=== PATIENT | male | born 1980 | race Two or more races ===

== ENCOUNTER → 2017-02-03 | Emergency (ER) | payer OTHER ==
[~2017-02-03] MED LIST: ASPIRIN 81 MG CHEWABLE TABLETS ONE; ASPIRIN 81 MG CHEWABLE TABLETS PO ONE; SODIUM CHLORIDE 0.9% 500 ML INFUS.BAG IV ONE
[2017-02-03 13:41] VITALS: BMI 39.1
--- NOTE | 2017-02-03 14:05 | PDOC ---
History of Present Illness - General History Source: Patient, Family Exam Limitations: No Limitations <Rubin Castellanos - Last Filed: 02/03/17 16:28> <Erin Browne - Last Filed: 02/03/17 22:09> <Eliel Marcano - Last Filed: 02/04/17 09:38> - General Chief Complaint: Chest Pain Stated Complaint: CHEST PAIN Time Seen by Provider: 02/03/17 13:52 - History of Present Illness Initial Comments: 02/03/17 15:44 The patient is a 36 year old male, with a significant past medical history of hypertension and hyperlipidemia, who presents to the emergency department complaining of chest pain that began yesterday. 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 During the shift he felt his pain was worse when walking around. He continued to work his shift, but towards the end someone had to takeover, because of his pain. The patient describes the pain as constant nonradiating substernal tightness. The patient currently rates his pain as a 5/10.The patient denies any shortness of breath, diaphoresis, palpitations, or peripheral edema. The patient states the pain was exacerbated when went to brush his teeth this morning moved his arms around. He reports visting his PCP for evaluation of his chest pain earlier today, where an EKG was done. The patient reports the EKG was abnormal and he was told to follow-up in the ED. The patient reports he is currently a little tired, has a dry mouth and mild chest discomfort. The patient denies any fever, chills, cough, headache, diaphoresis, or dizziness. The patient denies any back pain, abdominal pain, nausea, vomiting, diarrhea, constipation, or changes in urination patterns. The patient reports he his grandfather had a history of heart inflammation. The pt denies any history of exertional symptoms. Allergies: Penicillins Past Surgical History: None reported. Family History: Father: Diabetes and asthma. Grandfather: heart inflammation Social History: Non-smoker. Occasional ETOH use. Denies drug use. (Rubin Castellanos) Past History <Rubin Castellanos - Last Filed: 02/03/17 16:28> <Erin Browne - Last Filed: 02/03/17 22:09> - Past Medical History HTN: Yes Hypercholesterolemia: Yes - Psycho/Social/Smoking Cessation Hx Suicidal Ideation: No Smoking History: Never smoked Information on smoking cessation initiated: No Hx Alcohol Use: Yes (occasional) Drug/Substance Use Hx: No Substance Use Type: None <KrysEliel - Last Filed: 02/04/17 09:38> - Past Medical History Allergies/Adverse Reactions: Allergies Allergy/AdvReac Type Severity Reaction Status Date / Time Penicillins Allergy Verified 02/03/17 13:45 Home Medications: Ambulatory Orders NK [No Known Home Medication] 02/03/17 Review of Systems - Review of Systems Able to Perform ROS?: Yes <Rubin Castellanos - Last Filed: 02/03/17 16:28> <Erin Browne - Last Filed: 02/03/17 22:09> <Eliel Marcano - Last Filed: 02/04/17 09:38> - Review of Systems Comments:: 02/03/17 15:45 CONSTITUTIONAL: +Tired. No reported: Fever, Chills, Diaphoresis, Generalized Weakness, Malaise, Loss of Appetite HEENT: +Dry mouth. No reported: Rhinorrhea, Nasal Congestion, Throat Pain, Throat Swelling, Difficulty Swallowing, Mouth Swelling, Ear Pain, Eye Pain, Visual Changes CARDIOVASCULAR: +Chest pain, +chest discomfort. No reported: Syncope, Palpitations, Irregular Heart Rate, Lightheadedness, Peripheral Edema RESPIRATORY: No reported: Cough, Shortness of Breath, SOB with Exertion, Orthopnea, Wheezing , Stridor, Hemoptysis GASTROINTESTINAL: No reported: Abdominal pain, Abdominal Distension, Nausea, Vomiting, Diarrhea, Constipation, Melena, Hematochezia GENITOURINARY: No reported: Dysuria, Frequency, Urgency, Hesitancy, Flank Pain, Genital Pain MUSCULOSKELETAL: No reported: Myalgia, Arthralgia, Joint Swelling, Back pain, Neck Pain SKIN: No reported: Rash, Itching, Pallor HEMEATOLOGIC/IMMUNOLOGIC: No reported: Easy Bleeding, Easy Bruising, Lymphadenopathy, Frequent infections ENDOCRINE: No reported: Unexplained Weight Gain, Unexplained Weight Loss, Heat Intolerance , Cold Intolerance NEUROLOGIC: No reported: Headache, Focal Weakness, Paresthesias, Vertigo, Lightheadedness, Unsteady Gait, Seizure, Mental Status Changes, Incontinence PSYCHIATRIC: No reported: Anxiety, Depression (Castellanos,Giomilsy) *Physical Exam <Rubin Castellanos - Last Filed: 02/03/17 16:28> <Erin Browne - Last Filed: 02/03/17 22:09> <Eliel Marcano - Last Filed: 02/04/17 09:38> - Vital Signs Last Vital Signs Temp Pulse Resp BP Pulse Ox 98 F 71 16 128/77 97 02/03/17 18:33 02/04/17 00:31 02/03/17 18:33 02/04/17 00:31 02/04/17 00:31 - Physical Exam Comments: 02/03/17 15:48 GENERAL: The patient is awake, alert, and fully oriented, Nontoxic - in no acute distress. HEAD: Normocephalic, atraumatic. obese EYES: extraocular movements intact, sclera anicteric, conjunctiva clear. ENT: Normal voice, Moist mucous membranes. NECK: Normal range of motion, supple LUNGS: Breath sounds equal, clear to auscultation bilaterally. No wheezes, no rhonchi, no rales. HEART: Regular rate and rhythm, without murmur, rub or gallop. ABDOMEN: Soft, nontender, normoactive bowel sounds. No guarding, no rebound.No CVA tenderness EXTREMITIES: Normal range of motion, no edema. No clubbing or cyanosis. No cords, erythema, or tenderness. NEUROLOGICAL: No facial assymetry, Normal speech, PSYCH: Normal mood, normal affect. SKIN: Warm, Dry, normal turgor (Emanuel,Mavisomilsy) Heart Score/ECG Review <Rubin Castellanos - Last Filed: 02/03/17 16:28> <Erin Browne - Last Filed: 02/03/17 22:09> - History History: Slightly suspicious - Electrocardiogram EKG: Normal - Age Age: </= 46 - Risk Factors Risk Factors Heart Score: Yes Hx Hypercholesterolemia, Yes Hx Hypertension Based on the list above the patient has:: 1-2 risk factors - Troponin Troponin: </= normal limit - Score Heart Score - Total: 1 <Eliel Marcano - Last Filed: 02/04/17 09:38> - ECG Impressions Comment:: 02/03/17 14:58 Twelve-lead EKG was performed and reviewed by me. There is normal sinus rhythm with a rate of 103 Left axis deviation The intervals are normal. There is normal R wave progression There are no ST or T wave abnormalities. (Eliel Marcano) ED Treatment Course - LABORATORY CBC & Chemistry Diagram: 02/03/17 14:53 02/03/17 14:53 <Rubin Castellanos - Last Filed: 02/03/17 16:28> - LABORATORY CBC & Chemistry Diagram: 02/03/17 14:53 02/03/17 14:53 <Erin Browne - Last Filed: 02/03/17 22:09> - LABORATORY CBC & Chemistry Diagram: 02/03/17 14:53 02/03/17 14:53 <Eliel Marcano - Last Filed: 02/04/17 09:38> - ADDITIONAL ORDERS Additional order review: 02/03/17 14:53 RBC 5.85 H MCV 86.8 MCHC 33.0 RDW 12.8 MPV 9.5 Neutrophils % 76.2 Lymphocytes % 14.0 Monocytes % 8.1 Eosinophils % 1.0 Basophils % 0.7 - RADIOLOGY Radiology Studies Ordered: Category Date Time Status CHEST X-RAY PORTABLE* [RAD] Stat Radiology 02/03/17 14:52 Completed Radiograph Interpretation: 02/03/17 16:28 EXAM: CXR INTERPRETED BY: Dr. Cordova REVIEWED BY: Dr. Marcano IMPRESSION: Normal chest film. (Rubin Castellanos) - Medications Given in the ED: ED Medications Discontinued Medications Generic Name Dose Route Start Last Admin Trade Name Gigiq PRN Reason Stop Dose Admin Aspirin 162 mg 02/03/17 14:52 02/03/17 14:58 Asa - PO 02/03/17 14:53 162 mg ONCE ONE Administration Sodium Chloride 1,000 ml 02/03/17 21:58 02/03/17 22:58 Normal Saline - IV 02/03/17 21:59 1,000 ml ONCE ONE Administration Medical Decision Making <Rubin Castellanos - Last Filed: 02/03/17 16:28> <Erin Browne - Last Filed: 02/03/17 22:09> <Eliel Marcano - Last Filed: 02/04/17 09:38> - Medical Decision Making 02/03/17 21:50 Dr. Goldman was paged and notified via phone service. 02/03/17 22:09 Dr. Patel Kay was paged and notified via phone service. (Erin Browne) 02/03/17 14:53 36y M hx of htn, hl, presents with substernal chest pain, onset last night while he was doing moving boxes - pt states the pain his come back intermittently, sometimes comes back when he is moving his arm, othertimes when he is walking. no prior cp inthe past, no associated sob, diaprhoesis, n/v, leg swelling, worsening of pain when he coughs . pts exam is unremarkable and cp is not reproducibile but pt states the pain is worse with certain movements (such as stretching when laying on bed) pts ekg shows nsr with lad low susicion of acs based on pts age, but he does have several risk factors. will obtain trops x 2 will give asa will obtain cxr to r/o acute pathology. no sob or risk factors for PE. A portion of this note was documented by scribe services under my direction. I have reviewed the details of the note, within reason, and agree with the documentation with the following case summary and management plan written by me 02/03/17 19:49 trop x 1 negative awaiting second troponin signed out to dr. smith to fu with trop and reassess the patient. (Eliel Marcano) *DC/Admit/Observation/Transfer <Rubin Castellanos - Last Filed: 02/03/17 16:28> <Erin Browne - Last Filed: 02/03/17 22:09> <Eliel Marcano - Last Filed: 02/04/17 09:38> Diagnosis at time of Disposition: Chest pain - Discharge Dispostion Disposition: HOME Condition at time of disposition: Good - Referrals Referrals: Konstantin Goldman MD [Staff Physician] - - Patient Instructions Additional Instructions: At this time, your symptoms are more likely related to musculoskeletal pain and less likely cardiac in origin. Please follow up with the PMD within 24 hours for reevaluation and if there is any change otherwise in your symptoms, please return immediately to the ED. - Attestations Scribe Attestion: 02/03/17 15:48 Documentation prepared by Rubin Castellanos, acting as medical transcription for Eliel Marcano MD. (Rubin Castellanos)
[2017-02-03 15:00] LABS: BASOPHIL 0.7 % (0-2.0); MCH 28.7 pg (25.7-33.7); MEAN CELL VOLUME 86.8 fl (80-96); MEAN PLT VOLUME 9.5 fl (7.5-11.1); NEUTROPHILS 76.2 % (42.8-82.8); PLATELET COUNT 300 K/MM3 (134-434); RDW 12.8 % (11.9-15.9); WHITE BLOOD COUNT 11.7 K/mm3 (4.0-10.0)
[2017-02-03 15:32] LABS: ALBUMIN 4.8 g/dl (3.4-5.0); ANION GAP 13 (8-16); BILIRUBIN,TOTAL 0.5 mg/dL (0.2-1.0); CALCIUM 9.2 mg/dL (8.5-10.1); CO2 28 mmol/L (21-32); GLUCOSE,RANDOM 96 mg/dL (74-106); SGOT/AST 17 U/L (15-37); TOT PROT 8.1 g/dl (6.4-8.2)
[2017-02-03 15:36] LABS: ALK PHOS 105 U/L (45-117); SGPT/ALT 54 U/L (12-78); TROPONIN I < 0.02 ng/ml (0.00-0.05)
[2017-02-03 18:35] VITALS: TEMP 98
[2017-02-03 20:53] LABS: TROPONIN I < 0.02 ng/ml (0.00-0.05)
--- NOTE | 2017-02-03 22:00 | PDOC ---
*Physical Exam - Vital Signs Last Vital Signs Temp Pulse Resp BP Pulse Ox 98 F 83 16 123/88 100 02/03/17 18:33 02/03/17 18:33 02/03/17 18:33 02/03/17 18:33 02/03/17 18:33 ED Treatment Course - LABORATORY CBC & Chemistry Diagram: 02/03/17 14:53 02/03/17 14:53 - ADDITIONAL ORDERS Additional order review: Laboratory Results 02/03/17 02/03/17 02/03/17 20:17 14:53 14:53 Sodium 142 Potassium 4.0 Chloride 101 Carbon Dioxide 28 Anion Gap 13 BUN 16 Creatinine 1.0 Creat Clearance w eGFR > 60 Random Glucose 96 Calcium 9.2 Total Bilirubin 0.5 AST 17 ALT 54 Alkaline Phosphatase 105 Creatine Kinase 137 166 Creatine Kinase Index 0.9 CK-MB (CK-2) 1.533 CK-MB (CK-2) Rel Index Cancelled Troponin I < 0.02 < 0.02 Total Protein 8.1 Albumin 4.8 02/03/17 14:53 RBC 5.85 H MCV 86.8 MCHC 33.0 RDW 12.8 MPV 9.5 Neutrophils % 76.2 Lymphocytes % 14.0 Monocytes % 8.1 Eosinophils % 1.0 Basophils % 0.7 - RADIOLOGY Radiology Studies Ordered: Category Date Time Status CHEST CTA [CT] Stat CT Scan 02/03/17 21:58 Ordered - Medications Given in the ED: ED Medications Discontinued Medications Generic Name Dose Route Start Last Admin Trade Name Freq PRN Reason Stop Dose Admin Aspirin 162 mg 02/03/17 14:52 02/03/17 14:58 Asa - PO 02/03/17 14:53 162 mg ONCE ONE Administration Medical Decision Making - Medical Decision Making 02/03/17 21:59 Pt is received on sign out, still has chest pain. He has a negative troponin twice and has risk factors of hypertension, hyperlipidemia, tobacco use, family history and says his pain is persistent while at rest. I have discussed the case with cardiology leaf conditioner Zachary who appreciates the patient's symptoms suggests admission for his evaluation in the am. Will also obtain CTA chest, per cardiology request. 02/04/17 02:00 Pt is evaluated again, no pain and says he would prefer to follow up with PMD tomorrow. His CTA is negative. Given his HEART score 1 and TATIANA 1, and the fact he is not having any active chest pain. He is encouraged to follow up with PMD within the next 24 hours. *DC/Admit/Observation/Transfer Diagnosis at time of Disposition: Chest pain Qualifiers: Chest pain type: unspecified Qualified Code(s): R07.9 - Chest pain, unspecified - Discharge Dispostion Disposition: HOME Condition at time of disposition: Good Admit: No Decision to Admit order Date/Time: 02/04/17 02:03 - Referrals Referrals: Konstantin Goldman MD [Staff Physician] - - Patient Instructions Additional Instructions: At this time, your symptoms are more likely related to musculoskeletal pain and less likely cardiac in origin. Please follow up with the PMD within 24 hours for reevaluation and if there is any change otherwise in your symptoms, please return immediately to the ED.
[2017-02-04 00:31] VITALS: BP 128/77; PULSE 71
--- NOTE | 2017-02-04 18:31 | EKG ---
Test Reason : Blood Pressure : / mmHG Vent. Rate : 103 BPM Atrial Rate : 103 BPM P-R Int : 152 ms QRS Dur : 094 ms QT Int : 334 ms P-R-T Axes : 052 -46 060 degrees QTc Int : 437 ms SINUS TACHYCARDIA POSSIBLE LEFT ATRIAL ENLARGEMENT LEFT AXIS DEVIATION ABNORMAL ECG NO PREVIOUS ECGS AVAILABLE Confirmed by DEBI REGALADO MD ([id number]) on 02/04/2017 6:31:20 PM Referred By: Confirmed By:DEBI REGALADO MD
== END | disposition home or self-care (01) ==
LOC: JER 13:34
DX: R07.9 Chest pain, unspecified (principal); I10 Essential (primary) hypertension; E78.00 Pure hypercholesterolemia, unspecified
CPT/HCPCS: 36415; 71010-TC; 71275-TC; 80053; 82550; 82553; 84484; 85025; 93005; 93010; 99284-25